=== PATIENT | female | born 1990 | race Hispanic/Latino ===

== ENCOUNTER → 2024-01-29 11:57 | Outpatient (REF) | payer OTHER, SELFPAY ==
[2024-01-29 14:05] LABS: Free T4 1.26 ng/dl (0.78-2.19)
[2024-01-29 14:06] LABS: ALT (SGPT) 47 U/L (0-35); AST (SGOT) 37 U/L (14-36); Alkaline Phosphatase 101 U/L (38-126); Blood Urea Nitrogen 10 mg/dl (7-17); Calcium 9.9 mg/dl (8.4-10.2); Carbon Dioxide 21 mmol/L (22-30); Chloride 106 mmol/L (98-107); GGTP 70 U/L (12-43); Glucose 90 mg/dl (70-99); Potassium 4.9 mmol/L (3.5-5.1); Sodium 137 mmol/L (135-145); Total Bilirubin 1.7 mg/dl (0.2-1.3); Total Protein 8.4 g/dl (6.3-8.2); eGFR > 60.00
[2024-01-29 14:18] LABS: TSH 4.57 uIU/ml (0.47-4.68)
== END ==
LOC: REG 11:57
PROVIDERS: ATTENDING PHYSICIAN Nurse Practitioner Adult Health
DX: E03.9 Hypothyroidism, unspecified (principal); R74.8 Abnormal levels of other serum enzymes
CPT/HCPCS: 36415; 80053; 82977; 84439; 84443

== ENCOUNTER → 2024-03-04 13:20 | Outpatient (REF) | payer OTHER, SELFPAY | LOC: RAD 13:20 | PROVIDERS: ATTENDING PHYSICIAN Nurse Practitioner Adult Health | DX: R74.8 Abnormal levels of other serum enzymes (principal) | CPT/HCPCS: 76700 ==

== ENCOUNTER → 2024-04-29 13:12 | Outpatient (REF) | payer OTHER, SELFPAY ==
[2024-04-29 14:41] LABS: ALT (SGPT) 31 U/L (0-35); AST (SGOT) 22 U/L (14-36); Albumin 4.6 g/dl (3.5-5.0); Alkaline Phosphatase 119 U/L (38-126); Blood Urea Nitrogen 12 mg/dl (7-17); Calcium 10.1 mg/dl (8.4-10.2); Carbon Dioxide 23 mmol/L (22-30); Chloride 107 mmol/L (98-107); Glucose 96 mg/dl (70-99); Potassium 4.4 mmol/L (3.5-5.1); Sodium 142 mmol/L (135-145); Total Bilirubin 0.8 mg/dl (0.2-1.3); Total Protein 7.8 g/dl (6.3-8.2); eGFR > 60.00
[2024-04-29 14:58] LABS: Free T4 1.09 ng/dl (0.78-2.19)
[2024-04-29 15:12] LABS: TSH 6.16 uIU/ml (0.47-4.68)
== END ==
LOC: CLINIC 13:12
PROVIDERS: ATTENDING PHYSICIAN Nurse Practitioner Adult Health
DX: E03.9 Hypothyroidism, unspecified (principal); R74.8 Abnormal levels of other serum enzymes
CPT/HCPCS: 80053; 84439; 84443

== ENCOUNTER → 2024-06-24 09:08 | Outpatient (REF) | payer OTHER, SELFPAY | LOC: RAD 09:08 | PROVIDERS: ATTENDING PHYSICIAN Family Medicine | DX: I26.99 Other pulmonary embolism without acute cor pulmonale (principal) | CPT/HCPCS: 71275; Q9967 ==

== ENCOUNTER → 2024-08-03 09:33 | Outpatient (REF) | payer OTHER, SELFPAY ==
[2024-08-03 11:18] LABS: Free T4 1.05 ng/dl (0.78-2.19)
== END ==
LOC: REG 09:33
PROVIDERS: ATTENDING PHYSICIAN Nurse Practitioner Adult Health
DX: E03.9 Hypothyroidism, unspecified (principal)
CPT/HCPCS: 36415; 84439; 84443

== ENCOUNTER → 2024-11-02 09:06 | Outpatient (REF) | payer OTHER, SELFPAY ==
[2024-11-02 10:47] LABS: Free T4 1.45 ng/dl (0.78-2.19)
[2024-11-02 11:01] LABS: TSH 1.24 uIU/ml (0.47-4.68)
== END ==
LOC: CLINIC 09:06
PROVIDERS: ATTENDING PHYSICIAN Nurse Practitioner Adult Health
DX: E03.9 Hypothyroidism, unspecified (principal)
CPT/HCPCS: 36415; 84439; 84443

== ENCOUNTER → 2025-02-08 09:20 | Outpatient (REF) | payer OTHER, SELFPAY ==
[2025-02-08 10:20] LABS: Hematocrit 43.3 % (37.0-47.0); Hemoglobin 15.1 g/dL (12.0-16.0); Mean Corp Hgb Conc. 34.9 g/dL (33.0-37.0); Mean Corpuscular Hgb 31.3 pg (27.0-31.0); Mean Corpuscular Volume 89.6 fL (81.0-99.0); Mean Platelet Volume 9.6 fL (7.4-10.4); Platelet Count 244 10^3/uL (130-400); Red Blood Cell Count 4.83 10^6/uL (4.20-5.40); Red Cell Dist. Width 12.1 % (11.5-14.5); White Blood Cell Count 7.7 10^3/uL (4.8-10.8)
[2025-02-08 10:55] LABS: ALT (SGPT) 53 U/L (0-35); AST (SGOT) 29 U/L (14-36); Albumin 4.4 g/dl (3.5-5.0); Alkaline Phosphatase 98 U/L (38-126); Blood Urea Nitrogen 14 mg/dl (7-17); Calcium 9.6 mg/dl (8.4-10.2); Carbon Dioxide 19 mmol/L (22-30); Chloride 110 mmol/L (98-107); Glucose 110 mg/dl (70-99); Potassium 4.6 mmol/L (3.5-5.1); Sodium 141 mmol/L (135-145); Total Bilirubin 0.9 mg/dl (0.2-1.3); Total Protein 7.6 g/dl (6.3-8.2); eGFR > 60.00
[2025-02-08 11:28] LABS: Free T4 0.98 ng/dl (0.78-2.19)
[2025-02-08 11:37] LABS: Vitamin D, 25-OH*** 36.8 ng/mL (30-80)
[2025-02-08 11:42] LABS: TSH 5.95 uIU/ml (0.47-4.68)
== END ==
LOC: CLINIC 09:20
PROVIDERS: ATTENDING PHYSICIAN Nurse Practitioner Adult Health
DX: E03.9 Hypothyroidism, unspecified (principal); R74.8 Abnormal levels of other serum enzymes; E55.9 Vitamin D deficiency, unspecified
CPT/HCPCS: 36415; 80053; 82306; 84439; 84443; 85027

== ENCOUNTER → 2025-05-20 08:31 | Outpatient (REF) | payer OTHER, SELFPAY ==
[2025-05-20 12:39] LABS: ALT (SGPT) 43 U/L (0-35); AST (SGOT) 23 U/L (14-36); Albumin 4.2 g/dl (3.5-5.0); Alkaline Phosphatase 98 U/L (38-126); Blood Urea Nitrogen 12 mg/dl (7-17); Calcium 9.7 mg/dl (8.4-10.2); Carbon Dioxide 17 mmol/L (22-30); Chloride 114 mmol/L (98-107); Glucose 124 mg/dl (70-99); Potassium 4.6 mmol/L (3.5-5.1); Sodium 142 mmol/L (135-145); Total Protein 7.4 g/dl (6.3-8.2); eGFR > 60.00
[2025-05-20 13:45] LABS: Vitamin D, 25-OH*** 41.1 ng/mL (30-80)
[2025-05-20 13:58] LABS: TSH 0.51 uIU/ml (0.47-4.68)
== END ==
LOC: CLINIC 08:31
PROVIDERS: ATTENDING PHYSICIAN Nurse Practitioner Adult Health
DX: E03.9 Hypothyroidism, unspecified (principal); R74.8 Abnormal levels of other serum enzymes; E55.9 Vitamin D deficiency, unspecified
CPT/HCPCS: 36415; 80053; 82306; 84439; 84443

== ENCOUNTER → 2025-08-25 13:06 | Outpatient (REF) | payer OTHER, SELFPAY ==
[2025-08-25 16:09] LABS: ALT (SGPT) 43 U/L (0-35); AST (SGOT) 24 U/L (14-36); Albumin 4.6 g/dl (3.5-5.0); Alkaline Phosphatase 110 U/L (38-126); Blood Urea Nitrogen 11 mg/dl (7-17); Calcium 9.8 mg/dl (8.4-10.2); Carbon Dioxide 22 mmol/L (22-30); Chloride 109 mmol/L (98-107); Glucose 88 mg/dl (70-99); Potassium 4.3 mmol/L (3.5-5.1); Sodium 139 mmol/L (135-145); Total Protein 7.7 g/dl (6.3-8.2); eGFR > 60.00
[2025-08-26 09:06] LABS: Glycohemoglobin (HgbA1c) 5.7 % (4.0-5.6)
== END ==
LOC: CLINIC 13:06
PROVIDERS: ATTENDING PHYSICIAN Family Medicine
DX: R73.01 Impaired fasting glucose (principal)
CPT/HCPCS: 36415; 80053; 83036

== ENCOUNTER 2025-11-04 03:22 | Emergency (ER) | payer SELFPAY ==
[2025-11-04 03:24] VITALS: BP 129/80
[2025-11-04] MEDS: TORADOL 15 MG IM (04:40)
[2025-11-04] MEDS: CORTISPORIN OTIC SUSPENSION 1 DROP OTIC (04:40)
--- NOTE | 2025-11-04 04:41 | ED.GENMED ---
History of Present Illness
General
Chief Complaint: Ear Problem
Source: patient and family
Exam Limitations: none
Time Seen by Provider: 11/04/25 03:52
Nursing documentation reviewed up to this point in time: agreed with
History of Present Illness
History of Present Illness:
34-year-old female presenting to the emergency department with concerns of ear pain bilaterally. Worse over the past 2 days. This was immediately after using a Q-tip to clear her outer ears. Denies any fevers sore throat cough or additional
symptoms otherwise.
Review of Systems
Review of Systems
Allergies reviewed?: Yes
All Other Systems: ROS reviewed and negative except as documented in HPI and ROS
Phy Exam
Physical Exam
Physical Exam:
GENERAL: Alert , in no apparent distress
EYE: pupils equal and reactive
NECK: Supple, no significant adenopathy.
ENT: Swelling of the ear canals bilaterally right side worse than the left. Discomfort with manipulation of the tragus bilaterally. o/p clr, mmm.
CARDIAC: Regular rate and rhythm .
LUNGS: Clear breath sounds bilaterally, no acute respiratory distress, no wheezes/rales/rhonchi
ABDOMEN: Soft, without focal tenderness, no r/g, no cvat
NEUROLOGICAL: Alert and oriented, no focal neuro deficits
SKIN: Warm and dry, skin intact.
MUSCULOSKELETAL: No edema, well perfused.
PSYCH: Normal and appropriate interaction.
Course
Orders/Labs/Results
Orders:
Orders
11/04/25 04:18
Ketorolac [Toradol] 15 mg IM NOW STA
Neomycin/Polymyxin/Hc [Cortisporin Otic Suspension] See Dose Instructions OTIC NOW STA
Vital Signs
Initial and Last Documented VS:
Initial Vital Signs
Temp Pulse Resp BP Pulse Ox
99.3 F 84 16 129/80 97
11/04/25 03:24 11/04/25 03:24 11/04/25 03:24 11/04/25 03:24 11/04/25 03:24
Last Documented Vital Signs
Temp Pulse Resp BP Pulse Ox
99.3 F 84 16 129/80 97
11/04/25 03:24 11/04/25 03:24 11/04/25 03:24 11/04/25 03:24 11/04/25 04:43
MDM/Problems Addressed
MDM/Problems Addressed:
34-year-old female presenting to the emergency department with concerns of ear discomfort. Patient found to have ear canal swelling bilaterally right side worse than the left. This was after instrumentation with a Q-tip. Patient was treated with
antibiotic otherwise stable for close outpatient follow-up. Return precautions given.
*Pulse Oximetry
SaO2: 97
Oxygen Mode of Delivery: Room air
Patient hypoxic: no (97)
*Critical Care Note
Total Time (30-74mins, 75-104mins- exclusive of procedures): Not Applicable
ED Attending Note
-
Portions of this chart may have been created with voice recognition software.� Occasional wrong word or��sound alike� substitutions may have occurred due to the inherent limitations of voice recognition software.
Discharge Plan
Departure
Patient Disposition: Home (Routine Discharge)
Date of Disposition: 11/04/25
Time of Disposition: 04:59
Patient with high blood pressure during this ER visit?: No
Condition: Good
Covid-19: Not Applicable
Discharge Problem:
Acute Otitis Externa
Instructions: Outer Ear Infection (DC)
Referrals:
NONE,* [Family Provider, Internal Medicine]
Activity Restrictions/Additional Instructions:
You came to the emergency today with concerns of ear pain. Please use the prescribed topical drops and follow-up closely with your primary care doctor within 1 week. Return for any worsening, new or concerning symptoms.
Interventions
Interventions:
*Risk Screen - Suicide Last Done: 11/04/25 03:24
*General Assessment Last Done: 11/04/25 04:53
*Neglect/Abuse Screening Last Done: 11/04/25 04:53
*ED COVID-19 Vaccine History Last Done: 11/04/25 04:53
*ED Influenza Vaccine History Last Done: 11/04/25 04:53
[facility] Risk Assessment Tool Last Done: 11/04/25 04:54
Discharge Date and Time
Print Language: PALEST[place]IAN
== END 2025-11-04 05:05 | disposition home or self-care (01) ==
LOC: EMR 03:22
PROVIDERS: EMERGENCY PHYSICIAN Emergency Medicine
DX: H60.503 Unspecified acute noninfective otitis externa, bilateral (principal)
CPT/HCPCS: 99284; 96372